=== PATIENT | female | born 1980 | race Caucasian/White ===

== ENCOUNTER → 2021-07-27 09:40 | Outpatient (CLI) | payer BC, SELFPAY ==
--- NOTE | 2021-07-27 09:41 | US_ITS ---
FINAL REPORT CLINICAL HISTORY: pelvic pain and bloating FINDINGS: Transvaginal sonographic images of the pelvis were obtained. The uterus is somewhat enlarged measuring 9.6 x 6.4 x 5.5. The endometrium measures 15 mm, which is within normal limits. There is a small amount of fluid within the endometrium. The uterus has a mildly lobular contour which may represent fibroids. An IUD is present within the endometrial cavity. The right ovary measures 4.3 cm in length and left ovary measures 2.6 cm in length. Normal blood flow seen to the ovaries. There is a 3.3 cm right ovarian cyst. There is no evidence of free fluid. IMPRESSION: Mildly enlarged uterus with possible fibroids. IUD in the endometrial cavity. 3.3 cm right ovarian cyst. Reviewed, Interpreted and Dictated by Sterling Roper III, MD Transcribed by Kristy Langley Authenticated and [facility]
== END ==
PROVIDERS: PCP Family Medicine; Visit Provider Obstetrics & Gynecology
DX: R10.2 Pelvic and perineal pain (principal)
CPT/HCPCS: 76830

== ENCOUNTER → 2021-10-04 09:40 | Outpatient (CLI) | payer BC, SELFPAY ==
[2021-10-04 10:50] LABS: Basophils # 0.1 K/mm3 (0-0.2); Eosinophils # 0.1 K/mm3 (0.0-0.4); Eosinophils % 1.1 % (0.1-12.0); Hematocrit 45.6 % (37.0-47.0); Hemoglobin 13.9 g/dL (12.2-16.2); Lymphocytes # 2.1 K/mm3 (0.7-4.5); Lymphocytes % 28.9 % (10-50); Mean Corpuscular HGB Conc 30.4 g/dL (31.8-35.4); Mean Corpuscular Hemoglobin 31.1 pg (27.0-31.2); Mean Corpuscular Volume 102.2 fl (81-99); Mean Platelet Volume 8.2 fl (7.4-10.4); Monocytes # 0.4 K/mm3 (0.1-1.0); Monocytes % 4.8 % (1.7-9.3); Neutrophils # 4.7 K/mm3 (1.8-7.8); Neutrophils % 64.1 % (37.0-80.0); Platelet Count 332 K/mm3 (142-424); Red Blood Count 4.46 M/mm3 (4.20-5.40); Red Cell Distribution Width 13.3 % (11.5-17.5); White Blood Count 7.4 K/mm3 (4.8-10.8)
[2021-10-04 11:14] LABS: Alanine Aminotransferase 24 U/L (12-78); Albumin Level 4.4 g/dl (3.5-5.0); Albumin/Globulin Ratio 1.6 (1.1-1.8); Alkaline Phosphatase 101 U/L (38-126); Anion Gap 11.1 mEq/L (5-15); Aspartate Amino Transferase 29 U/L (14-36); Blood Urea Nitrogen 8 mg/dl (7-17); Calcium 9.6 mg/dl (8.4-10.2); Carbon Dioxide 31 mmol/L (22.0-30.0); Chloride 100 mmol/L (98-107); Estimated Glomerular Filt Rate 79 ml/min (>60); GFR (African American) 95 ML/MIN (>60); Globulin 2.7 g/dL (1.3-3.2); Glucose 82 mg/dl (74-100); Potassium 4.1 mmoL/L (3.5-5.1); Sodium 138 mmol/L (136-145); Total Protein,Serum 7.1 g/dl (6.3-8.2)
[2021-10-04 11:29] LABS: HCG,Quantitative < 2 mIU/ml (0-5.42)
== END ==
PROVIDERS: PCP Family Medicine; Visit Provider Obstetrics & Gynecology
DX: Z01.812 Encounter for preprocedural laboratory examination (principal); Z20.822 Contact with and (suspected) exposure to COVID-19; R10.2 Pelvic and perineal pain; N92.0 Excessive and frequent menstruation with regular cycle; N93.9 Abnormal uterine and vaginal bleeding, unspecified
CPT/HCPCS: 36415; 80053; 84702; 85025; 86850; C9803; U0003; U0005

== ENCOUNTER 2021-10-06 13:41 | Observation (INO) | payer BC, SELFPAY ==
[2021-10-06] VITALS (22 sets, daily range): BP systolic 103–128; BP diastolic 58–78; PULSE 75–112; RESP 14–18; TEMP 36.2–43; O2SAT 94–100; BMI 31.1
--- NOTE | 2021-10-06 09:36 | EXP.ANES.CKL ---
PFSH PFS Surgical History (Updated 07/15/21 @ 10:18 by Nika Boswell DO) History of 2 sections Surgical history of tubal ligation Social History Smoking Status: Never smoker alcohol intake: never substance use type: denies use current occupational status: employed
--- NOTE | 2021-10-06 10:12 | SUR.OPER ---
0832 updated family and consent to include cystoscopy 0921-updated family on pt progress
--- NOTE | 2021-10-06 10:47 | SUR.OPER ---
1045-updated family at this time.
--- NOTE | 2021-10-06 12:30 | P.PNANES_ITS ---
[facility] Anesthesia Record Part I Anesthesia Record I Intake, IV Amount: 3,300 Estimated blood loss (mL): 200 Urine output (mL): 250 Blood Pressure: 113/59 SaO2: 96 Pulse Rate: 111 Respiratory Rate: 14 Temperature: 97.5 F Patient is:: Awake and Stable Stable to PACU at:: 12:25
--- NOTE | 2021-10-06 12:37 | EXP.HP ---
*Admission Date: 10/06/21 *History of present illness: Ms Lali Trevizo is a 41 yo, P2022, who presents to [facility] for scheduled surgery. She complains of painful, heavy vaginal bleeding. She had Mirena IUD inserted in 2019 for menorrhagia and pelvic pain. She had not a period in over a year until recently. In early August, she states the cramping and bleeding was pretty bad. She admits recently she has been having pelvic pain when she bends over. Surgical history significant for x 2 and tubal ligation. Pap smear 07/15/21 was negative. Pelvic ultrasound 07/27/21 demonstrated enlarged uterus measuring 9.6 x 6.4 x 5.5. The endometrium measures 15 mm, which is within normal limits. There is a small amount of fluid within the endometrium.? The uterus has a mildly lobular contour which may represent fibroids.? An IUD is present within the endometrial cavity. [facility] Medical History (Updated 10/06/21 @ 09:55 by Dawit Mirza RN) Fistula Surgical History (Updated 10/06/21 @ 09:55 by Dawit Mirza RN) History of 2 sections History of cholecystectomy History of tonsillectomy Surgical history of tubal ligation [place] teeth extracted Family History (Updated 10/06/21 @ 09:56 by Dawit Mirza RN) Other Family history of cancer Family history of diabetes mellitus type II Social History (Updated 10/06/21 @ 09:40 by Deyvi Wong CRNA) Smoking Status: Never smoker alcohol intake: never substance use type: denies use current occupational status: employed Review of Systems Constitutional Constitutional: Denies chills, Denies fatigue, Denies fever(s), Denies poor appetite, Denies night sweats and Denies weakness Eyes Eyes: Denies blurry vision and Denies change in vision ENT Ears, Nose, Mouth, and Throat: Denies bleeding gums, Denies nasal congestion and Denies nasal discharge *Cardiovascular Cardiovascular: Denies chest pain, Denies diaphoresis, Denies dyspnea, Denies leg edema and Denies palpitations *Respiratory Respiratory: Denies chest congestion, Denies cough and Denies dyspnea *Gastrointestinal Gastrointestinal: Reports abdominal pain, Denies change in bowel habits, Denies nausea and Denies vomiting *Genitourinary Genitourinary: Reports abnormal vaginal bleeding, Denies dysuria, Denies hot flashes, Reports pelvic pain, Denies urinary incontinence, Denies urinary hesitancy, Denies urinary urgency, Denies vaginal discharge, Denies vaginal odor and Denies vaginal pruritus *Musculoskeletal Musculoskeletal: Denies back pain, Denies muscle cramps and Denies muscle weakness *Neurologic Neurologic: Denies weakness Endocrine Endocrine: Denies fatigue and Denies palpitations Meds Home Medications and Allergies Home Medications Medication Instructions Recorded Confirmed Type bupropion HCl 150 mg 24 hr tablet, 150 mg PO DAILY Depression 07/15/21 10/05/21 History extended release cetirizine 10 mg capsule (Zyrtec) 10 mg PO DAILY PRN Allergic 07/15/21 10/05/21 History Reaction lactobacillus combination no.4 3 3,000 mmu cells PO DAILY Supplement 07/15/21 10/05/21 History billion cell capsule (Probiotic) losartan 50 mg-hydrochlorothiazide 1 tab PO DAILY High blood pressure 07/15/21 10/05/21 History 12.5 mg tablet montelukast 10 mg tablet 10 mg PO DAILY Allergy symptoms 07/15/21 10/05/21 History omeprazole 20 mg capsule,delayed 20 mg PO DAILY GERD 07/15/21 10/05/21 History release New Prescriptions to Start Prescriptions: Allergies Allergy/AdvReac Type Severity Reaction Status Date / Time penicillin G Allergy Verified 10/04/21 08:49 Sulfa (Sulfonamide Allergy Verified 10/04/21 08:49 Antibiotics) Opioids - Morphine Analogues AdvReac Sensitivity Verified 10/04/21 08:49 to opioids Exam Data for Last 24 hours Vital signs and Labs for Last 24 Hours: Temp Pulse Resp BP Pulse Ox 97.5 F L 111 H 14 113/59 L 100 10/06/21 12:31 10/06/21 12:31
--- NOTE | 2021-10-06 13:02 | PC.NURSE ---
1220-Pt is diaphoretic. Justyn Paws cooling setting applied to patient. 1300-reports nausea. Zofran 4mg IVP administered. 1306-pt reports decreased nausea. Zofran effective.
--- NOTE | 2021-10-06 13:04 | EXP.OP.NOTE ---
Date of procedure: 10/06/21 Pre-op Diagnosis:: 1. Abnormal uterine bleeding 2. Chronic pelvic pain 3. Enlarged uterus 4. Uterine fibroids 5. Hypertension 6. Asthma Post-op Diagnosis:: 1. Abnormal uterine bleeding 2. Chronic pelvic pain 3. Enlarged uterus 4. Uterine fibroids 5. Hypertension 6. Asthma 7. Intrapelvic adhesions 8. Bilateral patent ureters Procedure performed:: Total Laparoscopic Hysterectomy, Bilateral salpingectomy, Cystoscopy Surgeon:: Nika Boswell DO Postal Supervisor(s):: Renetta Reyes MD WORKFORCE PLANNING ANALYST:: Deyvi Wong Anesthesia: GETA Estimated blood loss (mL): 200 Clinical Note:: Ms Lali Trevizo is a 41 yo, P2022, who presents to [facility] for scheduled surgery. She complains of painful, heavy vaginal bleeding. She had Mirena IUD inserted in 2019 for menorrhagia and pelvic pain. She had not had a period in over a year until recently. In early August, she states the cramping and bleeding was pretty bad. She admits recently she has been having pelvic pain when she bends over. Surgical history significant for x 2 and tubal ligation. Pap smear 07/15/21 was negative. Pelvic ultrasound 07/27/21 demonstrated enlarged uterus measuring 9.6 x 6.4 x 5.5. The endometrium measures 15 mm, which is within normal limits. There is a small amount of fluid within the endometrium.? The uterus has a mildly lobular contour which may represent fibroids.? An IUD is present within the endometrial cavity. Operative findings:: 1. Grossly normal appearing liver and stomach, gallbladder was peaking through omentum but not well visualized. 2. Enlarged uterus 3. Thick adhesions at the vesicouterine pertioneum 4. Grossly normal appearing bilateral fallopian tubes and ovaries 5. No bladder lesions, bilateral patent ureters Operative note:: Discussed risks, benefits, alternatives, expectations and possible complications of surgery. All questions addressed and answered. Patient wished to proceed with surgery. Patient was wheeled back to the operating room and placed in the dorsal lithotomy position. She was placed under general anesthesia without difficulty. She was prepped and draped in normal sterile fashion. Beginning at the vagina, a navarrete catheter was inserted into the bladder and draining clear urine prior to the start of the procedure. Weighted Auvuard was placed in the vaginal vault. Anterior lip of the cervix was grasped with single tooth tenaculum. Uterus sounded to 8. Artemio dilators were used to dilate the cervix. Advincula uterine manipulator was inserted into the cervix with the colpotomy cup covering the cervix. Single tooth tenaculum was removed prior to complete placement of colpotomy cup over cervix. Uterine balloon was filled with 10cc of air. Vaginal balloon was filled with 60 cc of air. Weighted Auvard was removed. Attention was then turned to the abdomen. Skin just below the umbilicus was injected with 0.5% marcaine. A 2cm infraumbilical incision was made. Veress needle was tested and inserted intrabdominally. Opening pressure was 4 mm Hg. The peritoneal cavity was insulflated to 15 mm Hg. Laparoscope within 11 mm blunt trocar was inserted intrabdominally under direct visualization. Obturator and scope were removed. Laparoscope was inserted into the trocar sleeve. Abdomen and pelvis was viewed in its entirety. Examination of the peritoneal cavitySee findings above. Pictures were taken. Bowel was swept cephalad with blunt probe. LLQ port site was transilluminated and injected with 0.5% marcaine. 2 cm incision was made and 11m trocar was inserted intraabdominally under direct laparoscopic visualization. Obturator was removed and sleeve was left in place. Same procedure was performed in RLQ. Left fallopian tube was grasped at fimbriated end. Ligasure Hook was used to transect the left mesosalpinx, mesovarium and ovarian ligament. Left fallopian tube was transected at cornua of uterus and removed from the body and off of the sterile field to be sent to pathology for re
--- NOTE | 2021-10-06 13:12 | PC.NURSE ---
1308-detailed report to Concepcion Campo RN
--- NOTE | 2021-10-06 13:54 | P.CONPHA_ITS ---
[facility] Pharmacy VTE Monitoring Patient Demographics Admission date: 10/06/21 Report Date: 10/06/21 Time: 13:54 Patient Allergies penicillin G Allergy (Verified 10/04/21 08:49) Sulfa (Sulfonamide Antibiotics) Allergy (Verified 10/04/21 08:49) Opioids - Morphine Analogues Adverse Reaction (Verified 10/04/21 08:49) Sensitivity to opioids Height: 1.65 m Weight: 84.822 kg Current Active Problems (Updated 10/06/21 @ 09:55 by Dawit Mirza RN) Hypertension (Acute) Pelvic pain (Chronic) Abnormal uterine bleeding (Chronic) Uterine fibroid (Acute) Enlarged uterus (Acute) Asthma (Acute) Prophylaxis VTE Prophylaxis Ordered?: Yes Types of VTE Prophylaxis: IPCS Thigh High Location of Applied Device: Bilateral Lower Extremeties
--- NOTE | 2021-10-06 14:02 | HMH.PHAINT1 ---
Pharmacy Intervention Comments: Medication reconciliation completed on patient using external fill history from pharmacy. -Willy Pearson, EzraD
[2021-10-06 14:37] LABS: Microscopic,Cath URINE MICROSCOPIC (MICROSCOPIC)
[2021-10-06 15:05] LABS: Appearance,Urine/Cath CLEAR (Clear); Bilirubin,Cath Negative (Negative); Blood, Urine/Cath Negative (Negative); Color,Urine/Cath YELLOW (Yellow); Glucose,Urine/Cath (UA) Negative (Negative); Ketones,Urine/Cath Negative (Negative); Leukocyte Esterase,Cath Negative (Negative); Nitrate,Cath Negative (Negative); Protein,Urine/Cath Negative (Negative); Urobilinogen,Cath 0.2 EU/dl (0.2)
--- NOTE | 2021-10-06 16:48 | PC.NURSE ---
RN reassessment completed at 1620. Pt remains A & O X4, has slept in intervals throughout the shift. Continues to deny any pain, has required PRN antiemetic x2 this shift for N/V. Zofran given recently, pt reporting increasing nausea with ambulation. RN assisted pt to BSC to void, able to void without any issues. Abd soft and mildly tender with hypoactive BS. 3 lap sites noted to abdomen. Lap site to umbilicus noted to have increased serosang drainage, removed and cleaned with 1/2 strength hydrogen peroxide. Incision well approximated with no active bleeding, covered with T/T dressing. VSS. Bed locked and in lowest position with side rails up x2. remains at bedside, will continue to monitor.
[2021-10-07] VITALS: BP 108/67; PULSE 78; RESP 17; TEMP 36.8; O2SAT 97
[2021-10-07 04:00] VITALS: BP 101/58; PULSE 78; RESP 17; TEMP 36.6; O2SAT 98
--- NOTE | 2021-10-07 04:03 | PC.NURSE ---
A&OX4. TOLERATING RA WELL T/O SHIFT. PT HAS ONLY C/O PAIN X1 THIS SHIFT, TX WITH SCHEDULED TORADOL. EFFECTIVENESS NOTED. PT HAS HAD NO EPISODES OF NA/VO THUS FAR THIS SHIFT. UP WITH STANDBY ASSIST TO BATHROOM, ADEQUATE U/O. NO GAS OR BM NOTED, THOUGH BOWELS SOUNDS ARE ACTIVE TO ALL QUADRANTS PER AUSCULTATION. HAS SLEPT MAJORITY OF SHIFT, AT BEDSIDE. DRESSINGS TO 3 INCISIONS CDI. NO OTHER NEEDS OR C/O NOTED THUS FAR. VSS.
[2021-10-07 06:41] LABS: Basophils # 0.3 K/mm3 (0-0.2); Basophils % 1.9 % (0.1-2.0); Eosinophils # 0.1 K/mm3 (0.0-0.4); Hemoglobin 9.9 g/dL (12.2-16.2); Lymphocytes # 1.9 K/mm3 (0.7-4.5); Lymphocytes % 14.3 % (10-50); Mean Corpuscular HGB Conc 32.9 g/dL (31.8-35.4); Mean Corpuscular Hemoglobin 31.9 pg (27.0-31.2); Mean Platelet Volume 8.4 fl (7.4-10.4); Monocytes # 0.6 K/mm3 (0.1-1.0); Monocytes % 4.3 % (1.7-9.3); Neutrophils # 10.3 K/mm3 (1.8-7.8); Neutrophils % 78.4 % (37.0-80.0); Platelet Count 283 K/mm3 (142-424); Red Cell Distribution Width 13.4 % (11.5-17.5); White Blood Count 13.2 K/mm3 (4.8-10.8)
[2021-10-07 06:48] LABS: Chloride 106 mmol/L (98-107); Sodium 139 mmol/L (136-145)
[2021-10-07 06:51] LABS: Anion Gap 7.5 mEq/L (5-15); Carbon Dioxide 29 mmol/L (22.0-30.0); Potassium 3.5 mmoL/L (3.5-5.1)
[2021-10-07 06:52] LABS: Calcium 7.9 mg/dl (8.4-10.2); Glucose 99 mg/dl (74-100)
[2021-10-07 07:17] LABS: Blood Urea Nitrogen 11 mg/dl (7-17)
[2021-10-07 07:37] LABS: Creatinine Clearance Estimated 123 mL/min (50-200); Estimated Glomerular Filt Rate 79 ml/min (>60); GFR (African American) 95 ML/MIN (>60)
[2021-10-07 08:45] VITALS: BP 103/56; PULSE 79; RESP 18; TEMP 36.7; O2SAT 99
--- NOTE | 2021-10-07 08:50 | EXP.DC.SUM ---
General Admission date:: 10/06/21 Discharge date: 10/07/21 HPI HPI HPI: POD # 1 She was resting comfortably in bed. Pain controlled. Admits to light spotting that has improved over night. She is tolerating regular diet. Nausea and vomiting has greatly improved. She is voiding without difficulty. Passing flatus. No BM. Denies fever/chills, chest pain and shortness of breath. She does admit to some pain behind her right knee. Ice pack offers relief. No lower extremity swelling. No calf pain. Exam Data for Last 24 hours Vital signs and Labs for Last 24 Hours: Temp Pulse Resp BP Pulse Ox 97.9 F 78 17 101/58 L 98 10/07/21 04:00 10/07/21 04:00 10/07/21 04:00 10/07/21 04:00 10/07/21 04:00 Laboratory Results - last 24 hr 10/06/21 07:45: Urine Color Yellow, Urine Appearance Clear, Urine pH 7.0, Ur Specific [place] 1.010, Urine Protein Negative, Urine Glucose (UA) Negative, Urine Ketones Negative, Urine Blood Negative, Urine Nitrate Negative, Urine Bilirubin Negative, Urine Urobilinogen 0.2, Ur Leukocyte Esterase Negative, Urine RBC None, Urine WBC None, Ur Squamous Epith Cells None, Urine Bacteria None 10/07/21 06:14: WBC 13.2 H D, RBC 3.10 L D, Hgb 9.9 L, Hct 30.0 L, MCV 97.0, MCH 31.9 H, MCHC 32.9, RDW 13.4, Plt Count 283, MPV 8.4, Neut % (Auto) 78.4, Lymph % (Auto) 14.3, Posey % (Auto) 4.3, Eos % (Auto) 1.0, Baso % (Auto) 1.9, Neut # (Auto) 10.3 H, Lymph # (Auto) 1.9, Posey # (Auto) 0.6, Eos # (Auto) 0.1, Baso # (Auto) 0.3 H 10/07/21 06:14: Sodium 139, Potassium 3.5, Chloride 106, Carbon Dioxide 29, Anion Gap 7.5, BUN 11 D, Creatinine 0.80, Estimated Creat Clear 123, Estimated GFR 79, Est GFR ( Amer) 95, Glucose 99, Calcium 7.9 L I & O for Last 24 hours: Intake & Output 10/04/21 10/05/21 10/06/21 10/07/21 23:59 23:59 23:59 23:59 Intake Total 3300 / 3300 Output Total 400 / 400 1200 / 1200 Balance 2900 / 2900 -1200 / -1200 Weight 187 lb Constitutional Constitutional: no acute distress *Routine HEENT Exam Head: Present normocephalic and atraumatic Eye: Absent conjunctivae pink ENT: Present mucous membranes dry *Routine Respiratory Exam Respiratory: Present CTA bilaterally and normal respiratory effort *Routine Cardiovascular Exam Cardiovascular: Present RRR *Routine Abdominal Exam Abdominal: Present soft and normoactive bowel sounds; Absent tenderness, distended or guarding Comments: Laparoscopic incisions clean/dry/intact with Dermabond over top *Routine Rectal Exam Rectal:: deferred *Routine Genitalia Exam Genitalia:: deferred *Routine Extremities Exam Extremities: Present full ROM; Absent cyanosis, edema or calf tenderness Comments: Tenderness behind right knee is most likely from yellow fins and positioning during surgery. Mild tenderness behind right knee with palpation *Routine Neurological Exam Neurological: Present alert and oriented X3 Routine Psychiatric Exam Psychiatric: Present normal affect Hospital Course Hospital Course Hospital Course: Ms Lali Trevizo is a 41 yo, P2022, who presents to [facility] for scheduled surgery. She complains of painful, heavy vaginal bleeding. She had Mirena IUD inserted in 2019 for menorrhagia and pelvic pain. She had not a period in over a year until recently. In early August, she states the cramping and bleeding was pretty bad. She admits recently she has been having pelvic pain when she bends over. Surgical history significant for x 2 and tubal ligation. Pap smear 07/15/21 was negative. Pelvic ultrasound 07/27/21 demonstrated enlarged uterus measuring 9.6 x 6.4 x 5.5. The endometrium measures 15 mm, which is within normal limits. There is a small amount of fluid within the endometrium.? The uterus has a mildly lobular contour which may represent fibroids.? An IUD is present within the endometrial cavity. She underwent total laparoscopic hysterectomy, bilateral salpingectomy, cystoscopy on 10/06/21. POD # 1 she was doing well. She reported some te
--- NOTE | 2021-10-08 13:08 | CARE MANAGER ---
Spoke with patient for discharge phone interview. She states that she is doing well and has no issues noted.
== END 2021-10-07 09:54 | disposition home or self-care (01) ==
LOC: OB 13:42
PROVIDERS: Admitting Provider Obstetrics & Gynecology; PCP Family Medicine; Visit Provider Obstetrics & Gynecology
PROC: 0UT9FZZ Resection of Uterus, Via Natural or Artificial Opening With Percutaneous Endoscopic Assistance (ICD-10-PCS; CPT 58552; principal; 2021-10-06 07:30)
DX: N85.2 Hypertrophy of uterus (principal); D25.9 Leiomyoma of uterus, unspecified; N93.8 Other specified abnormal uterine and vaginal bleeding; R10.2 Pelvic and perineal pain; D62 Acute posthemorrhagic anemia; I10 Essential (primary) hypertension
CPT/HCPCS: 58552; 36415; 80048; 81001; 85025; G0378; J2405; J2505